=== PATIENT | female | born 1985 | race Two or more races ===

== ENCOUNTER 2016-11-03 07:49 | Emergency (ER) | payer BC ==
[~2016-11-03] VITALS: Ht 160 cm; Wt 72.6 kg
[2016-11-03 07:56] VITALS: BP 157/106
[2016-11-03] MEDS ORDERED: HYDR-2666 PO (08:09)
--- NOTE | 2016-11-03 08:09 | PHYS DOC ---
Past Medical History Past Medical History: No Pertinent History Past Surgical History: No Surgical History Alcohol Use: Occasionally Drug Use: None Adult General Chief Complaint Chief Complaint: SHOULDER INJURY [facility] HPI Patient is a 31 year old female who presents with atraumatic right shoulder pain that started yesterday and is gradually worsening. Pain radiates from shoulder distally through arm with range of motion at shoulder and elbow. Pain is achy, constant, with shooting pains with movement. She has some tingling in her 4 fingertips, sparing the thumb. She denies fever or chills, injury, chest pain, cough, neck pain, back pain, rash, weakness, headache, vision changes. Review of Systems Review of Systems Constitutional: Denies fever or chills [] Eyes: Denies change in visual acuity, redness, or eye pain [] HENT: Denies nasal congestion or sore throat [] Respiratory: Denies cough or shortness of breath [] Cardiovascular: No additional information not addressed in HPI [] GI: Denies abdominal pain, nausea, vomiting, bloody stools or diarrhea [] : Denies dysuria or hematuria [] Musculoskeletal: Denies back pain [] Integument: Denies rash or skin lesions [] Neurologic: Denies headache, focal weakness [] Endocrine: Denies polyuria or polydipsia [] Allergies Allergies Allergies Coded Allergies Type Severity Reaction Last Updated Verified No Known Drug Allergies 11/03/16 No Physical Exam Physical Exam Constitutional: Well developed, well nourished, no acute distress, non-toxic appearance. [] HENT: Normocephalic, atraumatic, bilateral external ears normal, oropharynx moist, nose normal. [] Eyes: PERRLA, EOMI. [] Neck: Normal range of motion, supple. [] Cardiovascular:Heart rate regular rhythm [] Lungs & Thorax: Bilateral breath sounds clear to auscultation [] Abdomen: Bowel sounds normal, soft, no tenderness. [] Skin: Warm, dry, no erythema, no rash. [] Back: No tenderness, no CVA tenderness. [] Extremities: RUE with no obvious deformity or discoloration; Has some AC tenderness and anterior soft tissue tenderness with no visual or palpable abnormality; Full ROM with shoulder/elbow/wrist/hand; Can pronate/supinate; Can make fist/ok sign/thumb up/finger cross and spread; Can flex/ex wrist; Good radial pulse and brisk cap refill equal bilaterally; sensation intact to light touch m/u/r/ax nerves Neurologic: Alert and oriented X 3, normal motor function, normal sensory function, no focal deficits noted. [] Psychologic: Affect normal, judgement normal, mood normal. [] Current Patient Data Vital Signs Vital Signs Date Time Temp Pulse Resp B/P (MAP) Pulse Ox O2 Delivery O2 Flow Rate FiO2 11/03/16 07:56 98.3 88 16 98 Room Air 98.3 Course & Med Decision Making Course & Med Decision Making Suspect aseptic bursitis/arthritis versus AC joint inflammation versus other. Encouraged use of NSAIDs and other supportive care. Return precautions given. She understands and agrees with plan. Tabby Disclaimer Tabby Disclaimer This electronic medical record was generated, in whole or in part, using a voice recognition dictation system. Departure Departure Impression: Primary Impression: Right shoulder pain Disposition: HOME, SELF-CARE Condition: STABLE Patient Instructions: Shoulder Pain, [id number] Additional Instructions: Take naproxen every 12 hours with food for 2 weeks. Take hydrocodone as needed for severe pain. Do not drink, drive or operate heavy machinery after taking hydrocodone as it may make you sleepy. Follow-up with your primary care doctor. Return for any concerns. Scripts Hydrocodone Bit/Acetaminophen (HYDROCODONE-APAP 5-325 ) 1 Each Tablet 1-2 TAB PO PRN Q6HRS Y for PAIN, #6 TAB 0 Refills Prov: Heather RAMIREZ MD 11/03/16 Problem Qualifiers Primary Impression: Right shoulder pain Chronicity: acute Qualified Codes: M25.511 - Pain in right shoulder Heather RAMIREZ MD Nov 03, 2016 08:09
== END 2016-11-03 08:19 | disposition home or self-care (01) ==
LOC: ER 07:49
DX: M25.511 Pain in right shoulder (principal); M25.521 Pain in right elbow; R20.2 Paresthesia of skin
CPT/HCPCS: 99283